=== PATIENT | female | born 1985 | race American Indian/Alaskan Native ===

== ENCOUNTER 2018-12-20 22:39 | Inpatient (IN) | payer MEDICAID ==
--- NOTE | 2018-12-21 02:28 | Ultrasound Report ---
PROCEDURE: US OB BPP WO NON-STRESS TECHNIQUE: Transabdominal imaging was obtained for the biophysical profile. HISTORY: vaginal bleeding COMPARISONS: None FINDINGS: For breathing movements, a score of 2 out of 2 was obtained. For movements, a score of 2 out of 2 was obtained. For posture and tone, a score of 2 out of 2 was obtained. Qualitative amniotic fluid volume, a score of 2 out of 2 was obtained. The heart rate is 149 BPM. IMPRESSION: Biophysical profile score of 8 out of 8. The heart rate is 149 BPM.. This document is electronically signed by Cesar Hodges MD., Dec 21 2018 02:26:08 AM ET
--- NOTE | 2018-12-21 02:30 | Ultrasound Report ---
PROCEDURE: US OB LIMITED TECHNIQUE: A limited OB sonogram was obtained for evaluation of the placenta and DEBBIE. HISTORY: vaginal bleeding COMPARISONS: None FINDINGS: The placenta is anterior in position and is left lateral. The placental grade is grade 2. There is no evidence of abruption. The heart rate is 149 BPM. The fetus is in cephalic presentation. The A FI is 5.4 cm which is decreased. IMPRESSION: No evidence of placental abruption or previa. DEBBIE is 5.4 cm which is below normal compatible with oligohydramnios/premature rupture of membranes. This document is electronically signed by Cesar Hodges MD., Dec 21 2018 02:28:08 AM ET
[2018-12-21] MEDS ORDERED: AMPICILLIN/NS 2 GM/100 ML 2 GM/100 ML BAG IV ONE (02:37)
[2018-12-21] MEDS ORDERED: XYLOCAINE 2% INFILTRATI ONE ×2 (02:37→08:58)
[2018-12-21] MEDS ORDERED: STADOL IV PRN (02:37)
[2018-12-21] MEDS ORDERED: MINERAL OIL PO PRN ×2 (02:37→22:00)
[2018-12-21] MEDS ORDERED: ZOFRAN IV PRN (02:37)
[2018-12-21] MEDS ORDERED: BRETHINE SUB-Q PRN ×2 (02:37→08:58)
[2018-12-21] MEDS ORDERED: BRETHINE IVP PRN ×2 (02:37→08:58)
[2018-12-21] MEDS ORDERED: NARCAN 0.4 MG/1 ML IV PRN (02:37)
[2018-12-21] MEDS ORDERED: SUBLIMAZE IV PRN (02:37)
[2018-12-21 02:58] LABS: Hematocrit 30.6 % (30.3-42.9); Hemoglobin 9.7 gm/dl (10.1-14.3); Mean Corpuscular HGB Conc 32 % (30-34); Platelet Count 278 K/mm3 (140-440); Red Blood Count 4.39 M/mm3 (3.65-5.03); Red Cell Distribution Width 16.3 % (13.2-15.2)
[2018-12-21] MEDS ORDERED: LACTATED RINGERS 1,000 ML IV SCH (03:00)
[2018-12-21] MEDS ORDERED: PITOCin/NS 30 UNIT/500ML 30 UNITS/500 ML BAG IV SCH ×3 (03:00→09:00)
[2018-12-21] MEDS ORDERED: PITOCin/NS 20 UNIT/1000ML DRIP 20 UNITS/1,000 ML BAG IV SCH ×2 (03:00→09:00)
[2018-12-21 03:03] LABS: Mean Corpuscular Volume 70 fl (79-97)
[2018-12-21 05:10] LABS: Hepatitis C Virus Antibody Non-Reactive (NonReactive)
[2018-12-21] MEDS: AMPICILLIN/NS 1 GM/50 ML 1 GM/50 ML BAG IV SCH ×3 (08:50→18:59)
--- NOTE | 2018-12-21 08:51 | History and Physical Report ---
History of Present Illness Date of examination: 12/21/18 Date of admission: 12/20/18 04:12 Chief complaint: Vaginal bleeding History of present illness: Bleeding, less than a period, since last night. Oligohydramnios found on ultrasound last night. 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 Family/Genetic History: none Social history: no significant social history - Obstetrical History Expected Date of Delivery: 12/28/18 Actual Gestation: 39 Week(s) 0 Day(s) : 5 Para: 1 Hx # Term Pregnancies: 1 Spontaneous Abortions: 3 #1 Birthweight: 5 lb (VAVD) Method of Delivery: Vaginal Complications: other ( hemorrhage) Medications and Allergies Allergies Allergy/AdvReac Type Severity Reaction Status Date / Time No Known Allergies Allergy Verified 12/21/18 00:02 Home Medications Medication Instructions Recorded Confirmed Last Taken Type Acyclovir [Zovirax Tab] 400 mg PO Q8H 12/21/18 12/21/18 12/20/18 History Ferrous Sulfate [Iron 325 MG] 1 tab PO DAILY 12/21/18 12/21/18 12/20/18 History Active Meds: Active Medications Butorphanol Tartrate (Stadol) 2 mg IV Q2H PRN PRN Reason: Pain , Severe (7-10) Ephedrine Sulfate (Ephedrine Sulfate) 10 mg IV Q2M PRN PRN Reason: Hypotension Fentanyl (Sublimaze) 100 mcg IV Q2H PRN PRN Reason: Labor Pain Oxytocin/Sodium Chloride (Pitocin/Ns 20 Unit/1000ml Drip) 20 units in 1,000 mls @ 125 mls/hr IV DIRECT BING Oxytocin/Sodium Chloride (Pitocin/Ns 30 Unit/500ml) 30 units in 500 mls @ 4 mls/hr IV TITR BING; Protocol Last Titration: 12/21/18 08:30 Dose: 8 ml/hr, 8 mls/hr Documented by: Lactated Ringer's (Lactated Ringers) 1,000 mls @ 125 mls/hr IV DIRECT BING Last Admin: 12/21/18 04:42 Dose: 125 mls/hr Documented by: Ampicillin Sodium (Ampicillin/Ns 1 Gm/50 Ml) 1 gm in 50 mls @ 100 mls/hr IV Q4 HR BING; Protocol Mineral Oil (Mineral Oil) 30 ml PO QHS PRN PRN Reason: Constipation Naloxone HCl (Narcan 0.4 Mg/1 Ml) 0.1 mg IV Q2MIN PRN PRN Reason: Res Rate </= 8 or 02 SAT < 92% Ondansetron HCl (Zofran) 4 mg IV Q8H PRN PRN Reason: Nausea And Vomiting Terbutaline Sulfate (Brethine) 0.25 mg SUB-Q ONCE PRN PRN Reason: Hyperstimulation/Hypertonicity Terbutaline Sulfate (Brethine) 0.25 mg IVP ONCE PRN PRN Reason: Hyperstimulation/Hypertonicity Review of Systems All systems: negative - Vital Signs Vital signs: Vital Signs Pulse BP 90 128/74 12/20/18 22:53 12/20/18 22:53 Temp Pulse Resp BP Pulse Ox 98.5 F 81 18 108/70 99 12/21/18 04:17 12/21/18 08:41 12/21/18 04:17 12/21/18 08:25 12/21/18 08:41 - Physical Exam Breasts: Positive: deferred Cardiovascular: Regular rate, Normal S1, Normal S2 Lungs: Positive: Clear to auscultation, Normal air movement Abdomen: Positive: normal appearance, soft Genitourinary (Female): Positive: normal external genitalia, normal perenium Uterus: Positive: normal size, normal contour Extremities: Positive: normal - Obstetrical FHR: auscultation normal, category 1 Uterine Contraction Monitor Mode: External Cervical Dilatation: 1.5 (Mild dark bleeding present) Cervical Effacement Percentage: 50 station: -2 Uterine Contraction Pattern: Regular Uterine Tone Measurement Phase: Contraction Uterine Contraction Intensity: Moderate Results Result Diagrams: 12/21/18 02:40 Abnormal lab results 12/21/18 Range/Units 02:40 WBC 13.5 H (4.5-11.0) K/mm3 Hgb 9.7 L (10.1-14.3) gm/dl MCV 70 L (79-97) fl MCH 22 L (28-32) pg RDW 16.3 H (13.2-15.2) % All other labs normal. Assessment and Plan 1. Oligohydramnios 2. Bleeding at term 3. Early labor Plan: Continue Pitocin augmentation as tolerated. If no cervical change in 2 hours, consider Cytotec. Continue monitoring - Patient Problems (1) Oligohydramnios Current Visit: Yes Status: Acute Qualifiers: Fetus number: single or unspecified fetus Trimester: third trimester Qualified Code(s): O41.03X0 - Oligohydramnios, third trimester, not applicable or unspecified (2) Term Current Visit: Yes Status: Acute
[2018-12-21 09:40] LABS: Hematocrit 29.2 % (30.3-42.9); Hemoglobin 9.3 gm/dl (10.1-14.3); Mean Corpuscular HGB Conc 32 % (30-34); Platelet Count 272 K/mm3 (140-440); Red Blood Count 4.19 M/mm3 (3.65-5.03); Red Cell Distribution Width 16.5 % (13.2-15.2)
[2018-12-21 09:58] LABS: Mean Corpuscular Volume 70 fl (79-97)
--- NOTE | 2018-12-21 13:15 | Progress Note ---
Assessment and Plan A/P IUP 39 weeks oligo IOL for oligo s/p cervidil on pitocin prepare for epidural Subjective - Subjective Date of service: 12/21/18 Principal diagnosis: oligo Patient reports: movement normal, contractions, no new complaints, no loss of fluid, no vaginal bleeding Objective - Vital Signs Vital Signs: Vital Signs - 12hr 12/21/18 12/21/18 12/21/18 02:50 02:55 03:00 Temperature Pulse Rate 78 91 H 88 Respiratory Rate Blood Pressure Blood Pressure [Right] O2 Sat by Pulse 99 97 95 Oximetry 12/21/18 12/21/18 12/21/18 03:05 03:10 03:15 Temperature Pulse Rate 93 H 77 79 Respiratory Rate Blood Pressure Blood Pressure [Right] O2 Sat by Pulse 96 96 96 Oximetry 12/21/18 12/21/18 12/21/18 04:06 04:11 04:16 Temperature Pulse Rate 97 H 116 H 95 H Respiratory Rate Blood Pressure Blood Pressure [Right] O2 Sat by Pulse 98 98 97 Oximetry 12/21/18 12/21/18 12/21/18 04:17 04:20 04:21 Temperature 98.5 F Pulse Rate 102 H 77 86 Respiratory 18 Rate Blood Pressure 108/57 Blood Pressure 108/57 [Right] O2 Sat by Pulse 97 97 Oximetry 12/21/18 12/21/18 12/21/18 04:26 04:31 04:36 Temperature Pulse Rate 84 78 99 H Respiratory Rate Blood Pressure Blood Pressure [Right] O2 Sat by Pulse 98 96 98 Oximetry 12/21/18 12/21/18 12/21/18 04:41 04:46 04:51 Temperature Pulse Rate 90 81 98 H Respiratory Rate Blood Pressure Blood Pressure [Right] O2 Sat by Pulse 98 97 98 Oximetry 12/21/18 12/21/18 12/21/18 04:56 05:01 05:06 Temperature Pulse Rate 103 H 87 85 Respiratory Rate Blood Pressure Blood Pressure [Right] O2 Sat by Pulse 96 97 97 Oximetry 12/21/18 12/21/18 12/21/18 05:11 05:16 05:21 Temperature Pulse Rate 85 84 86 Respiratory Rate Blood Pressure Blood Pressure [Right] O2 Sat by Pulse 97 97 96 Oximetry 12/21/18 12/21/18 12/21/18 05:25 05:26 05:31 Temperature Pulse Rate 77 78 84 Respiratory Rate Blood Pressure 103/54 Blood Pressure [Right] O2 Sat by Pulse 96 97 Oximetry 12/21/18 12/21/18 12/21/18 05:36 05:41 05:45 Temperature Pulse Rate 92 H 87 74 Respiratory Rate Blood Pressure Blood Pressure [Right] O2 Sat by Pulse 98 97 94 Oximetry 12/21/18 12/21/18 12/21/18 05:46 05:51 05:52 Temperature Pulse Rate 90 76 79 Respiratory Rate Blood Pressure Blood Pressure [Right] O2 Sat by Pulse 96 97 93 Oximetry 12/21/18 12/21/18 12/21/18 05:55 05:56 06:01 Temperature Pulse Rate 106 H 77 71 Respiratory Rate Blood Pressure 99/60 Blood Pressure [Right] O2 Sat by Pulse 94 94 Oximetry 12/21/18 12/21/18 12/21/18 06:06 06:11 06:16 Temperature Pulse Rate 74 73 110 H Respiratory Rate Blood Pressure Blood Pressure [Right] O2 Sat by Pulse 95 94 95 Oximetry 12/21/18 12/21/18 12/21/18 06:18 06:21 06:23 Temperature Pulse Rate 72 91 H 73 Respiratory Rate Blood Pressure Blood Pressure [Right] O2 Sat by Pulse 94 95 94 Oximetry 12/21/18 12/21/18 12/21/18 06:25 06:26 06:29 Temperature Pulse Rate 73 107 H 78 Respiratory Rate Blood Pressure 98/54 Blood Pressure [Right] O2 Sat by Pulse 95 94 Oximetry 12/21/18 12/21/18 12/21/18 06:31 06:35 06:36 Temperature Pulse Rate 101 H 72 87 Respiratory Rate Blood Pressure Blood Pressure [Right] O2 Sat by Pulse 95 94 96 Oximetry 12/21/18 12/21/18 12/21/18 06:41 06:44 06:46 Temperature Pulse Rate 89 88 96 H Respiratory Rate Blood Pressure Blood Pressure [Right] O2 Sat by Pulse 95 94 96 Oximetry 12/21/18 12/21/18 12/21/18 06:51 06:56 07:01 Temperature Pulse Rate 85 91 H 79 Respiratory Rate Blood Pressure 99/56 Blood Pressure [Right] O2 Sat by Pulse 95 96 95 Oximetry 12/21/18 12/21/18 12/21/18 07:06 07:09 07:11 Temperature Pulse Rate 107 H 77 90 Respiratory Rate Blood Pressure Blood Pressure [Right] O2 Sat by Pulse 94 94 96 Oximetry 12/21/18 12/21/18 12/21/18 07:16 07:21 07:25 Temperature Pulse Rate 90 94 H 100 H Respiratory Rate Blood Pressure 108/64 Blood Pressure [Right] O2 Sat by Pulse 96 96 Oximetry 12/21/18 12/21/18 12/21/18 07:26 07:31 07:36 Temperature Pulse Rate 80 81 86 Respiratory Rate Blood Pressure Blood Pressure [Right] O2 Sat by Pulse 95 96 96 Oximetry 12/21/18 12/21/18 12/21/18 07:41 07:46 07:51 Temperature Pulse Rate 63 76 82 Respiratory Rate Blood Pressure Blood Pressure [Right] O2 Sat by Pulse 97 96 98 Oximetry 12/21/18 12/21/18 12/21/18 07:56 08:01 08:06 Temperature Pulse Rate 76 79 74 Respiratory Rate Blood Pressure 109/67 Blood Pressure [Right] O2 Sat by Pulse 99 99 99 Oximetry 12/21/18 12/21/18 12/21/18 08:11 08:16 08:21 Temperature Pulse Rate 78 76 93 H Respiratory Rate Blood Pressure Blood Pressure [Right] O2 Sat by Pulse 100 100 99 Oximetry 12/21/18 12/21/18 12/21/18 08:25 08:26 08:31 Temperature Pulse Rate 82 81 81 Respiratory Rate Blood Pressure 108/70 Blood Pressure [Right] O2 Sat by Pulse 99 98 Oximetry 12/21/18 12/21/18 12/21/18 08:36 08:41 08:46 Temperature Pulse Rate 89 81 87 Respiratory Rate Blood Pressure Blood Pressure [Right] O2 Sat by Pulse 98 99 98 Oximetry 12/21/18 12/21/18 12/21/18 08:59 09:06 09:11 Temperature Pulse Rate 73 84 84 Respiratory Rate Blood Pressure 99/52 Blood Pressure [Right] O2 Sat by Pulse 98 96 Oximetry 12/21/18 12/21/18 12/21/18 09:16 09:21 09:26 Temperature Pulse Rate 87 81 92 H Respiratory Rate Blood Pressure Blood Pressure [Right] O2 Sat by Pulse 97 96 98 Oximetry 12/21/18 12/21/18 12/21/18 09:31 09:32 09:36 Temperature Pulse Rate 77 84 75 Respiratory Rate Blood Pressure 104/59 Blood Pressure [Right] O2 Sat by Pulse 96 94 95 Oximetry 12/21/18 12/21/18 12/21/18 09:41 09:45 09:46 Temperature Pulse Rate 92 H 81 86 Respiratory Rate Blood Pressure Blood Pressure [Right] O2 Sat by Pulse 97 94 96 Oximetry 12/21/18 12/21/18 12/21/18 09:51 09:53 09:56 Temperature Pulse Rate 86 82 87 Respiratory Rate Blood Pressure 105/62 Blood Pressure [Right] O2 Sat by Pulse 95 94 95 Oximetry 12/21/18 12/21/18 12/21/18 09:58 10:01 10:05 Temperature Pulse Rate 75 76 90 Respiratory Rate Blood Pressure Blood Pressure [Right] O2 Sat by Pulse 94 94 94 Oximetry 12/21/18 12/21/18 12/21/18 10:06 10:11 10:13 Temperature Pulse Rate 76 81 86 Respiratory Rate Blood Pressure Blood Pressure [Right] O2 Sat by Pulse 95 95 94 Oximetry 12/21/18 12/21/18 12/21/18 10:16 10:21 10:25 Temperature Pulse Rate 88 89 83 Respiratory Rate Blood Pressure 113/69 Blood Pressure [Right] O2 Sat by Pulse 97 94 Oximetry 12/21/18 12/21/18 12/21/18 10:26 10:27 10:31 Temperature Pulse Rate 84 94 H 93 H Respiratory Rate Blood Pressure Blood Pressure [Right] O2 Sat by Pulse 95 94 96 Oximetry 12/21/18 12/21/18 12/21/18 10:33 10:36 10:39 Temperature Pulse Rate 79 86 74 Respiratory Rate Blood Pressure Blood Pressure [Right] O2 Sat by Pulse 94 98 94 Oximetry 12/21/18 12/21/18 12/21/18 10:41 10:46 10:47 Temperature Pulse Rate 85 69 72 Respiratory Rate Blood Pressure Blood Pressure [Right] O2 Sat by Pulse 95 95 94 Oximetry 12/21/18 12/21/18 12/21/18 10:51 10:53 10:56 Temperature Pulse Rate 82 73 80 Respiratory Rate Blood Pressure Blood Pressure [Right] O2 Sat by Pulse 95 94 97 Oximetry 12/21/18 12/21/18 12/21/18 11:00 11:01 11:06 Temperature Pulse Rate 75 71 78 Respiratory Rate Blood Pressure 109/55 Blood Pressure [Right] O2 Sat by Pulse 97 97 Oximetry 12/21/18 12/21/18 12/21/18 11:11 11:16 11:21 Temperature Pulse Rate 82 77 86 Respiratory Rate Blood Pressure Blood Pressure [Right] O2 Sat by Pulse 96 97 96 Oximetry 12/21/18 12/21/18 12/21/18 11:25 11:26 11:31 Temperature Pulse Rate 73 74 71 Respiratory Rate Blood Pressure 114/70 Blood Pressure [Right] O2 Sat by Pulse 96 96 Oximetry 12/21/18 12/21/18 12/21/18 11:36 11:41 11:46 Temperature Pulse Rate 81 76 80 Respiratory Rate Blood Pressure Blood Pressure [Right] O2 Sat by Pulse 96 97 97 Oximetry 12/21/18 12/21/18 12/21/18 11:51 11:56 12:00 Temperature 98.7 F Pulse Rate 72 77 Respiratory Rate Blood Pressure 106/70 Blood Pressure [Right] O2 Sat by Pulse 97 97 Oximetry 12/21/18 12/21/18 12/21/18 12:01 12:06 12:36 Temperature Pulse Rate 77 85 75 Respiratory Rate Blood Pressure Blood Pressure [Right] O2 Sat by Pulse 95 97 97 Oximetry 12/21/18 12/21/18 12/21/18 12:41 12:46 12:51 Temperature Pulse Rate 76 79 84 Respiratory Rate Blood Pressure Blood Pressure [Right] O2 Sat by Pulse 97 96 94 Oximetry 12/21/18 12/21/18 12/21/18 12:52 12:56 13:01 Temperature Pulse Rate 83 78 79 Respiratory Rate Blood Pressure Blood Pressure [Right] O2 Sat by Pulse 94 97 98 Oximetry 12/21/18 12/21/18 12/21/18 13:06 13:09 13:11 Temperature Pulse Rate 86 72 73 Respiratory Rate Blood Pressure 109/66 Blood Pressure [Right] O2 Sat by Pulse 99 97 Oximetry - Exam Breasts: normal Cardiovascular: Regular rate, Normal S1 Lungs: Clear to auscultation, Normal air movement Abdomen: Present: normal appearance, soft, normal bowel sounds. Absent: distention, tenderness, guarding Uterus: Present: normal, firm, fundal height below umbilicus. Absent: bogginess, tenderness Cervical Dilatation: 3 Cervical Effacement Percentage: 80 station: -3 Uterine Contraction Pattern: Regular Uterine Tone Measurement Phase: Contraction Uterine Contraction Intensity: Moderate - Labs Labs: Abnormal Labs 12/21/18 12/21/18 02:40 09:24 WBC 13.5 H 11.9 H Hgb 9.7 L 9.3 L Hct 29.2 L MCV 70 L 70 L MCH 22 L 22 L RDW 16.3 H 16.5 H Laboratory Results - last 24 hr 12/21/18 12/21/18 12/21/18 02:40 02:40 02:40 WBC 13.5 H RBC 4.39 Hgb 9.7 L Hct 30.6 MCV 70 L MCH 22 L MCHC 32 RDW 16.3 H Plt Count 278 RPR Nonreactive Hep Bs Antigen Hepatitis C Antibody HIV 1&2 Antibody Rapid HIV P24 Antigen Rubella IgG Antibody Blood Type AB POSITIVE Antibody Screen Negative 12/21/18 12/21/18 12/21/18 02:40 02:40 02:40 WBC RBC Hgb Hct MCV MCH MCHC RDW Plt Count RPR Hep Bs Antigen Non-reactive Hepatitis C Antibody Non-reactive HIV 1&2 Antibody Rapid Non react HIV P24 Antigen Non react Rubella IgG Antibody Immune Blood Type Antibody Screen 12/21/18 09:24 WBC 11.9 H RBC 4.19 Hgb 9.3 L Hct 29.2 L MCV 70 L MCH 22 L MCHC 32 RDW 16.5 H Plt Count 272 RPR Hep Bs Antigen Hepatitis C Antibody HIV 1&2 Antibody Rapid HIV P24 Antigen Rubella IgG Antibody Blood Type Antibody Screen
[2018-12-21] MEDS: LACTATED RINGERS 1,000 ML IV SCH ×3 (13:30→19:40)
[2018-12-21] MEDS ORDERED: fentaNYL-BUPIV 2 MCG/ML-0.125% 200 MCG/100 ML BAG EPIDURAL ONE (14:07)
[2018-12-21] MEDS ORDERED: NARCAN 2 MG/2 ML IV PRN (14:11)
--- NOTE | 2018-12-21 14:13 | Anesthesia Day of Surgery ---
Anesthesia Day of Surgery - Day of Surgery Patient Examined: Yes Patient H&P Reviewed: Yes Patient is NPO: Yes Beta Blockers: No Cardiac Clearance: No Pulmonary Clearance: No Corbin's Test: N/A
--- NOTE | 2018-12-21 14:13 | Anesthesia Consultation ---
Anesthesia Consult and Med Hx Date of service: 12/21/18 - Airway Anesthetic Teeth Evaluation: Good ROM Head & Neck: Adequate Mental/Hyoid Distance: Adequate Mallampati Class: Class III Intubation Access Assessment: Probably Good - Pulmonary Exam CTA: Yes - Cardiac Exam Cardiac Exam: RRR - Pre-Operative Health Status ASA Pre-Surgery Classification: ASA3 Proposed Anesthetic Plan: Epidural, Spinal - Pulmonary Hx Smoking: No Hx Asthma: No Hx Respiratory Symptoms: No SOB: No COPD: No Home Oxygen Therapy: No Hx Pneumonia: No Hx Sleep Apnea: No - Cardiovascular System Hx Hypertension: No Hx Coronary Artery Disease: No Hx Heart Attack/AMI: No Hx Angina: No Hx Percutaneous Transluminal Coronary Angioplasty (PTCA): No Hx Cardia Arrhythmia: No Hx Pacemaker: No Hx Internal Defibrillator: No Hx Valvular Heart Disease: No Hx Heart Murmur: No Hx Peripheral Vascular Disease: No - Central Nervous System Hx Neuromuscular Disorder: No Hx Seizures: No CVA: No Hx Back Pain: Yes Hx Psychiatric Problems: No - Gastrointestinal Hx Ulcer: No Hx Gastroesophageal Reflux Disease: Yes - Endocrine Hx Renal Disease: No Hx End Stage Renal Disease: No Hx Cirrhosis: No Hx Liver Disease: No Hx Insulin Dependent Diabetes: No Hx Non-Insulin Dependent Diabetes: No Hx Thyroid Disease: No Hx Hypothyroidism: No Hx Hyperthyroidism: No - Hematic Hx Anemia: Yes Hx Sickle Cell Disease: Yes (trait) - Other Systems Hx Alcohol Use: No Hx Substance Use: No Hx Cancer: No Hx Obesity: No
--- NOTE | 2018-12-21 14:14 | Post Anesthesia Evaluation ---
- Post Anesthesia Evaluation Patient Participated: Yes Airway Patent: Yes Stable Respiratory Function: Yes Nausea/Vomiting: No Temp > 96.8F: Yes Pain Manageable: Yes Adequeate Hydration: Yes Anesthesia Complications: No Block Receding Appropriately: Yes Patient on Ventilator: No
[2018-12-21] MEDS ORDERED: fentaNYL-BUPIV 2 MCG/ML-0.125% 200 MCG/100 ML BAG EPIDURAL SCH (15:00)
--- NOTE | 2018-12-21 21:10 | Progress Note ---
Assessment and Plan A/P IUP 39 weeks, term, vertex IOL for oligo s/p cervidil on pitocin s/p epidural AROM clear continue pitocin expect vaginal delivery Subjective - Subjective Date of service: 12/21/18 Principal diagnosis: oligo Patient reports: movement normal, contractions, no new complaints, no loss of fluid, no vaginal bleeding Objective - Vital Signs Vital Signs: Vital Signs - 12hr 12/21/18 12/21/18 12/21/18 09:11 09:16 09:21 Temperature Pulse Rate 84 87 81 Blood Pressure O2 Sat by Pulse 96 97 96 Oximetry 12/21/18 12/21/18 12/21/18 09:26 09:31 09:32 Temperature Pulse Rate 92 H 77 84 Blood Pressure O2 Sat by Pulse 98 96 94 Oximetry 12/21/18 12/21/18 12/21/18 09:36 09:41 09:45 Temperature Pulse Rate 75 92 H 81 Blood Pressure 104/59 O2 Sat by Pulse 95 97 94 Oximetry 12/21/18 12/21/18 12/21/18 09:46 09:51 09:53 Temperature Pulse Rate 86 86 82 Blood Pressure O2 Sat by Pulse 96 95 94 Oximetry 12/21/18 12/21/18 12/21/18 09:56 09:58 10:01 Temperature Pulse Rate 87 75 76 Blood Pressure 105/62 O2 Sat by Pulse 95 94 94 Oximetry 12/21/18 12/21/18 12/21/18 10:05 10:06 10:11 Temperature Pulse Rate 90 76 81 Blood Pressure O2 Sat by Pulse 94 95 95 Oximetry 12/21/18 12/21/18 12/21/18 10:13 10:16 10:21 Temperature Pulse Rate 86 88 89 Blood Pressure O2 Sat by Pulse 94 97 94 Oximetry 12/21/18 12/21/18 12/21/18 10:25 10:26 10:27 Temperature Pulse Rate 83 84 94 H Blood Pressure 113/69 O2 Sat by Pulse 95 94 Oximetry 12/21/18 12/21/18 12/21/18 10:31 10:33 10:36 Temperature Pulse Rate 93 H 79 86 Blood Pressure O2 Sat by Pulse 96 94 98 Oximetry 12/21/18 12/21/18 12/21/18 10:39 10:41 10:46 Temperature Pulse Rate 74 85 69 Blood Pressure O2 Sat by Pulse 94 95 95 Oximetry 12/21/18 12/21/18 12/21/18 10:47 10:51 10:53 Temperature Pulse Rate 72 82 73 Blood Pressure O2 Sat by Pulse 94 95 94 Oximetry 12/21/18 12/21/18 12/21/18 10:56 11:00 11:01 Temperature Pulse Rate 80 75 71 Blood Pressure 109/55 O2 Sat by Pulse 97 97 Oximetry 12/21/18 12/21/18 12/21/18 11:06 11:11 11:16 Temperature Pulse Rate 78 82 77 Blood Pressure O2 Sat by Pulse 97 96 97 Oximetry 12/21/18 12/21/18 12/21/18 11:21 11:25 11:26 Temperature Pulse Rate 86 73 74 Blood Pressure 114/70 O2 Sat by Pulse 96 96 Oximetry 12/21/18 12/21/18 12/21/18 11:31 11:36 11:41 Temperature Pulse Rate 71 81 76 Blood Pressure O2 Sat by Pulse 96 96 97 Oximetry 12/21/18 12/21/18 12/21/18 11:46 11:51 11:56 Temperature Pulse Rate 80 72 77 Blood Pressure 106/70 O2 Sat by Pulse 97 97 97 Oximetry 12/21/18 12/21/18 12/21/18 12:00 12:01 12:06 Temperature 98.7 F Pulse Rate 77 85 Blood Pressure O2 Sat by Pulse 95 97 Oximetry 12/21/18 12/21/18 12/21/18 12:36 12:41 12:46 Temperature Pulse Rate 75 76 79 Blood Pressure O2 Sat by Pulse 97 97 96 Oximetry 12/21/18 12/21/18 12/21/18 12:51 12:52 12:56 Temperature Pulse Rate 84 83 78 Blood Pressure O2 Sat by Pulse 94 94 97 Oximetry 12/21/18 12/21/18 12/21/18 13:01 13:06 13:09 Temperature Pulse Rate 79 86 72 Blood Pressure 109/66 O2 Sat by Pulse 98 99 Oximetry 12/21/18 12/21/18 12/21/18 13:11 13:16 13:20 Temperature Pulse Rate 73 75 79 Blood Pressure O2 Sat by Pulse 97 97 94 Oximetry 12/21/18 12/21/18 12/21/18 13:21 13:26 13:31 Temperature Pulse Rate 73 68 76 Blood Pressure 113/72 O2 Sat by Pulse 97 94 99 Oximetry 12/21/18 12/21/18 12/21/18 13:36 13:41 13:46 Temperature Pulse Rate 77 69 72 Blood Pressure O2 Sat by Pulse 96 96 99 Oximetry 12/21/18 12/21/18 12/21/18 13:51 13:56 13:57 Temperature Pulse Rate 74 74 71 Blood Pressure 115/73 O2 Sat by Pulse 97 96 Oximetry 12/21/18 12/21/18 12/21/18 14:01 14:06 14:13 Temperature Pulse Rate 85 78 70 Blood Pressure O2 Sat by Pulse 97 97 100 Oximetry 12/21/18 12/21/18 12/21/18 14:18 14:23 14:25 Temperature Pulse Rate 72 64 69 Blood Pressure 107/67 O2 Sat by Pulse 100 100 Oximetry 12/21/18 12/21/18 12/21/18 14:28 14:29 14:33 Temperature Pulse Rate 81 75 87 Blood Pressure 109/65 O2 Sat by Pulse 100 99 Oximetry 12/21/18 12/21/18 12/21/18 14:34 14:38 14:39 Temperature Pulse Rate 71 70 71 Blood Pressure 100/57 97/57 O2 Sat by Pulse 99 Oximetry 12/21/18 12/21/18 12/21/18 14:43 14:46 14:48 Temperature Pulse Rate 74 87 70 Blood Pressure 109/64 O2 Sat by Pulse 99 100 Oximetry 12/21/18 12/21/18 12/21/18 14:49 14:50 14:53 Temperature Pulse Rate 65 65 74 Blood Pressure 104/57 104/58 O2 Sat by Pulse 100 Oximetry 12/21/18 12/21/18 12/21/18 14:55 14:58 14:59 Temperature Pulse Rate 68 65 66 Blood Pressure 111/62 108/61 O2 Sat by Pulse 99 Oximetry 12/21/18 12/21/18 12/21/18 15:03 15:04 15:08 Temperature Pulse Rate 68 65 87 Blood Pressure 105/60 O2 Sat by Pulse 99 100 Oximetry 12/21/18 12/21/18 12/21/18 15:13 15:18 15:21 Temperature Pulse Rate 73 64 66 Blood Pressure 105/60 O2 Sat by Pulse 100 100 Oximetry 12/21/18 12/21/18 12/21/18 15:23 15:28 15:33 Temperature Pulse Rate 65 76 69 Blood Pressure O2 Sat by Pulse 100 97 99 Oximetry 12/21/18 12/21/18 12/21/18 15:35 15:38 15:43 Temperature Pulse Rate 72 76 72 Blood Pressure 100/57 O2 Sat by Pulse 99 98 Oximetry 12/21/18 12/21/18 12/21/18 15:48 15:50 15:53 Temperature Pulse Rate 67 70 81 Blood Pressure 102/63 O2 Sat by Pulse 98 99 Oximetry 12/21/18 12/21/18 12/21/18 15:58 16:00 16:03 Temperature 98.4 F Pulse Rate 79 75 Blood Pressure O2 Sat by Pulse 97 98 Oximetry 12/21/18 12/21/18 12/21/18 16:07 16:08 16:13 Temperature Pulse Rate 82 92 H 96 H Blood Pressure 125/78 O2 Sat by Pulse 94 99 Oximetry 12/21/18 12/21/18 12/21/18 16:18 16:21 16:23 Temperature Pulse Rate 83 84 68 Blood Pressure 110/73 O2 Sat by Pulse 99 99 Oximetry 12/21/18 12/21/18 12/21/18 16:28 16:33 16:36 Temperature Pulse Rate 67 74 59 L Blood Pressure 101/56 O2 Sat by Pulse 99 98 Oximetry 12/21/18 12/21/18 12/21/18 16:38 16:43 16:48 Temperature Pulse Rate 69 77 74 Blood Pressure O2 Sat by Pulse 97 97 98 Oximetry 12/21/18 12/21/18 12/21/18 16:52 16:53 16:58 Temperature Pulse Rate 73 79 64 Blood Pressure 113/70 O2 Sat by Pulse 99 99 Oximetry 12/21/18 12/21/18 12/21/18 17:03 17:06 17:08 Temperature Pulse Rate 72 70 90 Blood Pressure 102/58 O2 Sat by Pulse 97 97 Oximetry 12/21/18 12/21/18 12/21/18 17:09 17:10 17:13 Temperature Pulse Rate 84 83 70 Blood Pressure 106/63 O2 Sat by Pulse 93 97 Oximetry 12/21/18 12/21/18 12/21/18 17:18 17:22 17:23 Temperature Pulse Rate 74 75 91 H Blood Pressure 107/63 O2 Sat by Pulse 97 97 Oximetry 12/21/18 12/21/18 12/21/18 17:25 17:28 17:33 Temperature Pulse Rate 120 H 105 H 67 Blood Pressure O2 Sat by Pulse 94 97 97 Oximetry 12/21/18 12/21/18 12/21/18 17:35 17:38 17:43 Temperature Pulse Rate 70 58 L 73 Blood Pressure 111/69 O2 Sat by Pulse 97 97 Oximetry 12/21/18 12/21/18 12/21/18 17:48 17:50 17:53 Temperature Pulse Rate 61 68 65 Blood Pressure 106/68 O2 Sat by Pulse 97 98 Oximetry 12/21/18 12/21/18 12/21/18 17:58 18:03 18:06 Temperature Pulse Rate 63 66 80 Blood Pressure 111/66 O2 Sat by Pulse 97 98 Oximetry 12/21/18 12/21/18 12/21/18 18:08 18:13 18:18 Temperature Pulse Rate 68 59 L 61 Blood Pressure O2 Sat by Pulse 98 99 99 Oximetry 12/21/18 12/21/18 12/21/18 18:20 18:23 18:28 Temperature Pulse Rate 55 L 66 62 Blood Pressure 103/55 O2 Sat by Pulse 98 96 Oximetry 12/21/18 12/21/18 12/21/18 18:33 18:35 18:38 Temperature Pulse Rate 59 L 70 72 Blood Pressure 103/59 O2 Sat by Pulse 96 95 Oximetry 12/21/18 12/21/18 12/21/18 18:40 18:43 18:48 Temperature Pulse Rate 95 H 75 74 Blood Pressure O2 Sat by Pulse 91 99 99 Oximetry 12/21/18 12/21/18 12/21/18 18:51 18:52 18:53 Temperature Pulse Rate 69 87 60 Blood Pressure 77/50 75/47 O2 Sat by Pulse 99 Oximetry 12/21/18 12/21/18 12/21/18 18:57 18:58 19:00 Temperature Pulse Rate 65 56 L 60 Blood Pressure 82/53 87/50 O2 Sat by Pulse 99 Oximetry 12/21/18 12/21/18 12/21/18 19:03 19:08 19:13 Temperature Pulse Rate 91 H 52 L 90 Blood Pressure 98/50 94/51 O2 Sat by Pulse 99 98 98 Oximetry 12/21/18 12/21/18 12/21/18 19:18 19:19 19:23 Temperature Pulse Rate 70 71 68 Blood Pressure 92/55 83/50 O2 Sat by Pulse 97 96 Oximetry 12/21/18 12/21/18 12/21/18 19:28 19:29 19:33 Temperature Pulse Rate 70 69 68 Blood Pressure 96/51 O2 Sat by Pulse 97 96 Oximetry 12/21/18 12/21/18 12/21/18 19:34 19:37 19:38 Temperature Pulse Rate 66 71 67 Blood Pressure 100/55 100/59 O2 Sat by Pulse 94 96 Oximetry 12/21/18 12/21/18 12/21/18 19:43 19:48 19:53 Temperature Pulse Rate 68 64 65 Blood Pressure 97/52 O2 Sat by Pulse 95 95 96 Oximetry 12/21/18 12/21/18 12/21/18 19:56 19:58 20:03 Temperature Pulse Rate 72 69 61 Blood Pressure O2 Sat by Pulse 92 94 94 Oximetry 12/21/18 12/21/18 12/21/18 20:08 20:10 20:13 Temperature Pulse Rate 74 63 69 Blood Pressure 95/52 O2 Sat by Pulse 94 95 Oximetry 12/21/18 12/21/18 12/21/18 20:16 20:18 20:23 Temperature Pulse Rate 70 71 64 Blood Pressure 93/54 O2 Sat by Pulse 93 95 95 Oximetry 12/21/18 12/21/18 12/21/18 20:28 20:33 20:38 Temperature Pulse Rate 67 63 64 Blood Pressure 95/54 O2 Sat by Pulse 95 96 95 Oximetry 12/21/18 12/21/18 12/21/18 20:43 20:48 20:53 Temperature Pulse Rate 65 69 69 Blood Pressure O2 Sat by Pulse 94 95 96 Oximetry 12/21/18 12/21/18 20:58 21:03 Temperature Pulse Rate 72 85 Blood Pressure O2 Sat by Pulse 95 97 Oximetry - Exam Breasts: normal Cardiovascular: Regular rate, Normal S1 Lungs: Clear to auscultation, Normal air movement Abdomen: Present: normal appearance, soft, normal bowel sounds. Absent: distention, tenderness, guarding Uterus: Present: normal, firm, fundal height below umbilicus. Absent: bogginess, tenderness FHR: category 1 Cervical Dilatation: 4 Cervical Effacement Percentage: 80 station: -2 Uterine Contraction Pattern: Regular Uterine Tone Measurement Phase: Contraction Uterine Contraction Intensity: Moderate Extremities: normal Deep Tendon Reflex Grade: Normal +2 - Labs Labs: Abnormal Labs 12/21/18 12/21/18 02:40 09:24 WBC 13.5 H 11.9 H Hgb 9.7 L 9.3 L Hct 29.2 L MCV 70 L 70 L MCH 22 L 22 L RDW 16.3 H 16.5 H Laboratory Results - last 24 hr 12/21/18 12/21/18 12/21/18 02:40 02:40 02:40 WBC 13.5 H RBC 4.39 Hgb 9.7 L Hct 30.6 MCV 70 L MCH 22 L MCHC 32 RDW 16.3 H Plt Count 278 RPR Nonreactive Hep Bs Antigen Hepatitis C Antibody HIV 1&2 Antibody Rapid HIV P24 Antigen Rubella IgG Antibody Blood Type AB POSITIVE Antibody Screen Negative 12/21/18 12/21/18 12/21/18 02:40 02:40 02:40 WBC RBC Hgb Hct MCV MCH MCHC RDW Plt Count RPR Hep Bs Antigen Non-reactive Hepatitis C Antibody Non-reactive HIV 1&2 Antibody Rapid Non react HIV P24 Antigen Non react Rubella IgG Antibody Immune Blood Type Antibody Screen 12/21/18 09:24 WBC 11.9 H RBC 4.19 Hgb 9.3 L Hct 29.2 L MCV 70 L MCH 22 L MCHC 32 RDW 16.5 H Plt Count 272 RPR Hep Bs Antigen Hepatitis C Antibody HIV 1&2 Antibody Rapid HIV P24 Antigen Rubella IgG Antibody Blood Type Antibody Screen
[2018-12-21] MEDS ORDERED: METHERGINE IM ONE ×2 (22:05→22:11)
[2018-12-21] MEDS ORDERED: CYTOTEC ONE (22:13)
[2018-12-21] MEDS ORDERED: CYTOTEC PR ONE (22:14)
[2018-12-21 22:59] LABS: Basophils # (Auto) 0.1 K/mm3 (0.0-0.1); Basophils % (Auto) 0.4 % (0.0-1.8); Eosinophils % (Auto) 0.2 % (0.0-4.3); Hematocrit 28.9 % (30.3-42.9); Hemoglobin 9.2 gm/dl (10.1-14.3); Lymphocytes # (Auto) 1.6 K/mm3 (1.2-5.4); Lymphocytes % (Auto) 11.8 % (13.4-35.0); Mean Corpuscular HGB Conc 32 % (30-34); Mean Corpuscular Volume 71 fl (79-97); Monocytes # (Auto) 0.7 K/mm3 (0.0-0.8); Platelet Count 249 K/mm3 (140-440); Red Cell Distribution Width 16.5 % (13.2-15.2)
--- NOTE | 2018-12-21 23:38 | Procedure Note ---
OB Delivery Note - Delivery Date of Delivery: 12/21/18 Surgeon: AFSANEH MACDONALD Estimated blood loss: 1000cc - Vaginal Delivery presentation: vertex Delivery position: OA Delivery induction: AROM Delivery monitor: external FHT, external uterine Route of delivery: Delivery placenta: spontaneous Delivery cord: 3 umbilical vessels Episiotomy: none Delivery laceration: none Anesthesia: none Delivery comments: Patient was noted to be c/c +1 and commenced to pushing a viable male infant at 2200. The nasopharynx and oropharynx suctioned. The cord was clamped and cut and placed on mom chest. The Apgars noted at 9 and 9. Weight ofmale infant 5 pounds 14 oz. Survey of perineum did not revela any lacerations. The placenta delivered intact with three vessel cord. Bleeding was noted and had 1000cc. Immediate uterine massage, hand in the uterus to remove clots cytotec 1000 ug MD and Methergine. Bleeding resolved- uterus firm. Stat cbc sent which was essentially same as admission for hgb at 9. I will repeat in several hours and place 2 U on hold for possible transfusion. Patient tolerated procedure well.
[2018-12-22 00:48] LABS: Hemoglobin 8.5 gm/dl (10.1-14.3); Mean Corpuscular HGB Conc 32 % (30-34); Platelet Count 244 K/mm3 (140-440); Red Blood Count 3.86 M/mm3 (3.65-5.03); Red Cell Distribution Width 16.4 % (13.2-15.2)
[2018-12-22 00:52] LABS: Mean Corpuscular Volume 70 fl (79-97)
[2018-12-22] MEDS ORDERED: BENADRYL PO PRN (02:35)
[2018-12-22] MEDS ORDERED: DULCOLAX PR PRN (02:35)
[2018-12-22] MEDS ORDERED: LANSINOH TP PRN (02:35)
[2018-12-22] MEDS ORDERED: TUCKS PAD TP PRN (02:35)
[2018-12-22] MEDS ORDERED: TYLENOL PO PRN (02:35)
[2018-12-22] MEDS: IBUPROFEN PO SCH ×3 (02:57→23:09)
[2018-12-22] MEDS ORDERED: SODIUM CHLORIDE FLUSH SYRINGE 10 ML IV PRN (03:00)
[2018-12-22 08:02] LABS: Band Neutrophils # (Manual) 2.7 K/mm3; Basophils % (Manual) 0 % (0.0-1.8); Eosinophils % (Manual) 0 % (0.0-4.3); Total Cells Counted 100
[2018-12-22 08:03] LABS: Anisocytosis 1+
--- NOTE | 2018-12-22 10:34 | Progress Note ---
Assessment and Plan A/P PPD1 s/p PP hemorrhage hgb 9-8. on amp for uterine hand to remove clots during Pp hemorrhage close monitor of vs Subjective - Subjective Date of service: 12/22/18 Principal diagnosis: oligo Patient reports: appetite normal, voiding normally, pain well controlled, ambulating normally : doing well Objective - Vital Signs Latest vital signs: Vital Signs Temp Pulse Resp BP BP Pulse Ox 12/22/18 07:38 98.4 F 62 20 99/60 96 12/22/18 03:50 98.6 F 75 18 103/52 97 12/22/18 02:57 20 12/22/18 02:39 98.7 F 81 18 103/63 99 12/22/18 02:02 75 101/56 12/22/18 01:48 72 107/64 12/22/18 01:32 96 H 103/64 12/22/18 01:17 74 104/60 12/22/18 01:02 81 103/59 12/22/18 00:48 85 106/60 12/22/18 00:44 77 97/53 12/22/18 00:22 74 98/49 12/21/18 23:48 81 101/58 12/21/18 23:33 85 116/55 12/21/18 23:18 87 121/62 12/21/18 23:12 85 90 12/21/18 23:07 85 90 12/21/18 23:01 83 96 12/21/18 23:00 88 120/58 12/21/18 22:56 95 H 99 12/21/18 22:55 94 H 133/69 12/21/18 22:51 127 H 87 12/21/18 22:46 107 H 100 12/21/18 22:44 126 H 142/64 12/21/18 22:41 137 H 100 12/21/18 22:40 116 H 90 12/21/18 22:36 107 H 100 12/21/18 22:35 94 H 102/63 12/21/18 22:33 131 H 115/68 12/21/18 22:30 116 H 87/58 12/21/18 22:25 85 95/55 12/21/18 22:17 88 99/57 12/21/18 22:03 96 H 97 12/21/18 22:00 108 H 86 0524 21:58 92 H 98 05 21:53 84 98 0524 21:48 85 98 05 21:43 77 98 05/ 21:42 83 112/57 05/19 21:38 82 98 05 21:33 74 98 05 21:28 76 97 05 21:23 77 98 05 21:18 80 98 05 21:13 92 H 98 05 21:12 86 94/51 05 21:08 78 97 05 21:03 85 97 05 20:58 72 95 05 20:53 69 96 05 20:48 69 95 0519 20:43 65 94 05 20:38 64 95/54 95 05 20:33 63 96 05 20:28 67 95 0519 20:23 64 93/54 95 05/19 20:18 71 95 05/19 20:16 70 93 0519 20:13 69 95 05/19 20:10 63 95/52 05 20:08 74 94 05 20:03 61 94 0519 19:58 69 94 0519 19:56 72 92 05 19:53 65 97/52 96 05 19:48 64 95 05 19:43 68 95 05 19:38 67 100/59 96 0519 19:37 71 94 0524/19 19:34 66 100/55 0524/19 19:33 68 96 05/24/19 19:29 69 96/51 0524/19 19:28 70 97 0519 19:23 68 83/50 96 05 19:19 71 92/55 05/19 19:18 70 97 05 19:13 90 94/51 98 0524 19:08 52 L 98/50 98 05 19:03 91 H 99 05 19:00 60 87/50 05/24/19 18:58 56 L 99 12/21/18 18:57 65 82/53 05 18:53 60 99 05 18:52 87 75/47 12/21/18 18:51 69 77/50 05 18:48 74 99 12/21/18 18:43 75 99 12/21/18 18:40 95 H 91 12/21/18 18:38 72 95 12/21/18 18:35 70 103/59 12/21/18 18:33 59 L 96 12/21/18 18:28 62 96 12/21/18 18:23 66 98 12/21/18 18:20 55 L 103/55 12/21/18 18:18 61 99 12/21/18 18:13 59 L 99 12/21/18 18:08 68 98 12/21/18 18:06 80 111/66 12/21/18 18:03 66 98 12/21/18 17:58 63 97 12/21/18 17:53 65 98 12/21/18 17:50 68 106/68 12/21/18 17:48 61 97 12/21/18 17:43 73 97 12/21/18 17:38 58 L 97 12/21/18 17:35 70 111/69 12/21/18 17:33 67 97 12/21/18 17:28 105 H 97 12/21/18 17:25 120 H 94 12/21/18 17:23 91 H 97 12/21/18 17:22 75 107/63 12/21/18 17:18 74 97 12/21/18 17:13 70 97 12/21/18 17:10 83 106/63 12/21/18 17:09 84 93 12/21/18 17:08 90 97 12/21/18 17:06 70 102/58 12/21/18 17:03 72 97 12/21/18 16:58 64 99 12/21/18 16:53 79 99 05 16:52 73 113/70 12/21/18 16:48 74 98 12/21/18 16:43 77 97 12/21/18 16:38 69 97 12/21/18 16:36 59 L 101/56 12/21/18 16:33 74 98 12/21/18 16:28 67 99 05 16:23 68 99 05 16:21 84 110/73 05 16:18 83 99 12/21/18 16:13 96 H 99 12/21/18 16:08 92 H 94 12/21/18 16:07 82 125/78 05 16:03 75 98 12/21/18 16:00 98.4 F 12/21/18 15:58 79 97 05 15:53 81 99 05 15:50 70 102/63 05 15:48 67 98 12/21/18 15:43 72 98 05 15:38 76 99 05 15:35 72 100/57 05 15:33 69 99 05 15:28 76 97 12/21/18 15:23 65 100 05 15:21 66 105/60 05 15:18 64 100 05 15:13 73 100 05 15:08 87 100 05 15:04 65 105/60 05 15:03 68 99 05 14:59 66 108/61 05 14:58 65 99 05 14:55 68 111/62 05 14:53 74 100 05 14:50 65 104/58 05 14:49 65 104/57 05 14:48 70 100 05 14:46 87 109/64 05 14:43 74 99 05 14:39 71 97/57 05 14:38 70 99 05 14:34 71 100/57 05 14:33 87 99 05 14:29 75 109/65 05 14:28 81 100 05 14:25 69 107/67 05 14:23 64 100 05 14:18 72 100 05 14:13 70 100 05 14:06 78 97 05 14:01 85 97 05 13:57 71 115/73 05 13:56 74 96 05 13:51 74 97 05 13:46 72 99 05 13:41 69 96 05 13:36 77 96 05 13:31 76 99 05 13:26 68 113/72 94 05 13:21 73 97 05 13:20 79 94 05 13:16 75 97 05 13:11 73 97 05 13:09 72 109/66 05 13:06 86 99 05 13:01 79 98 05 12:56 78 97 05 12:52 83 94 05 12:51 84 94 12/21/18 12:46 79 96 12/21/18 12:41 76 97 05 12:36 75 97 05 12:06 85 97 05 12:01 77 95 05 12:00 98.7 F 12/21/18 11:56 77 106/70 97 05 11:51 72 97 05 11:46 80 97 05 11:41 76 97 12/21/18 11:36 81 96 05 11:31 71 96 05 11:26 74 96 12/21/18 11:25 73 114/70 05 11:21 86 96 12/21/18 11:16 77 97 12/21/18 11:11 82 96 05 11:06 78 97 05 11:01 71 97 05 11:00 75 109/55 05 10:56 80 97 05 10:53 73 94 05 10:51 82 95 05 10:47 72 94 05 10:46 69 95 05 10:41 85 95 12/21/18 10:39 74 94 05 10:36 86 98 05 10:33 79 94 Intake and Output 12/21/18 12/22/18 12/22/18 23:59 07:59 15:59 Intake Total 602.083 120 Output Total 420 800 Balance 182.083 -680 Intake: IV 602.083 Lactated Ringers 1,000 ml 602.083 @ 125 mls/hr IV DIRECT BING Rx#:[id number] Intake, Free Water 120 Output: Urine 320 800 Indwelling Catheter 320 Void 800 Emesis 100 Other: Total, Output Amount 320 800 Estimated Blood Loss 1,000 - Exam Breasts: Present: normal Cardiovascular: Present: Regular rate, Normal S1 Lungs: Present: Clear to auscultation, Normal air movement Abdomen: Present: normal appearance, soft, normal bowel sounds. Absent: distention, tenderness, guarding Uterus: Present: normal, firm, fundal height below umbilicus. Absent: bogginess, tenderness Extremities: Present: normal Deep Tendon Reflex Grade: Normal +2 Incision: Present: normal, dry - Labs Labs: Abnormal lab results 12/21/18 12/22/18 Range/Units 22:44 00:26 WBC 13.4 H 22.5 H (4.5-11.0) K/mm3 Hgb 9.2 L 8.5 L (10.1-14.3) gm/dl Hct 28.9 L 27.0 L (30.3-42.9) % MCV 71 L 70 L (79-97) fl MCH 23 L 22 L (28-32) pg RDW 16.5 H 16.4 H (13.2-15.2) % Lymph % (Auto) 11.8 L (13.4-35.0) % Seg Neutrophils % 82.6 H (40.0-70.0) % Seg Neuts % (Manual) 73.0 H (40.0-70.0) % Lymphocytes % (Manual) 12.0 L (13.4-35.0) % Seg Neutrophils # 11.0 H (1.8-7.7) K/mm3 Seg Neutrophils # Man 16.4 H (1.8-7.7) K/mm3
[2018-12-22 15:10] LABS: Hematocrit 24.4 % (30.3-42.9); Hemoglobin 7.7 gm/dl (10.1-14.3)
[2018-12-22] MEDS: AMPICILLIN/NS 2 GM/100 ML 2 GM/100 ML BAG IV SCH ×2 (18:10→23:08)
[2018-12-22] MEDS ORDERED: NACL 0.9% 500 ML 500 ML IV ONE (19:39)
[2018-12-22] MEDS: FEOSOL PO SCH (19:59)
[2018-12-23] MEDS: IBUPROFEN PO SCH ×3 (05:06→23:46)
[2018-12-23] MEDS: AMPICILLIN/NS 2 GM/100 ML 2 GM/100 ML BAG IV SCH ×4 (05:07→23:43)
[2018-12-23] MEDS ORDERED: BOOSTRIX IM ONE (06:00)
[2018-12-23 07:46] LABS: Basophils # (Auto) 0.1 K/mm3 (0.0-0.1); Basophils % (Auto) 0.6 % (0.0-1.8); Eosinophils # (Auto) 0.2 K/mm3 (0.0-0.4); Eosinophils % (Auto) 1.9 % (0.0-4.3); Hemoglobin 7.9 gm/dl (10.1-14.3); Lymphocytes # (Auto) 2.2 K/mm3 (1.2-5.4); Lymphocytes % (Auto) 18.4 % (13.4-35.0); Mean Corpuscular HGB Conc 33 % (30-34); Monocytes # (Auto) 0.8 K/mm3 (0.0-0.8); Monocytes % (Auto) 6.4 % (0.0-7.3); Platelet Count 244 K/mm3 (140-440); Red Blood Count 3.48 M/mm3 (3.65-5.03); Red Cell Distribution Width 16.6 % (13.2-15.2)
[2018-12-23 08:05] LABS: Mean Corpuscular Volume 69 fl (79-97)
[2018-12-23] MEDS: FEOSOL PO SCH ×3 (08:57→20:11)
--- NOTE | 2018-12-23 09:03 | Progress Note ---
Assessment and Plan A/P PPD2 s/p PP hemorrhage hgb 9-8. repeat CBC consider d/c home Subjective - Subjective Date of service: 12/23/18 Principal diagnosis: oligo Patient reports: appetite normal, voiding normally, pain well controlled, flatus, ambulating normally [place]: doing well Objective - Vital Signs Latest vital signs: Vital Signs Temp Pulse Resp BP Pulse Ox 12/23/18 07:24 98.6 F 59 L 18 102/52 99 12/22/18 15:42 98.1 F 69 20 99/58 98 12/22/18 11:32 98.0 F 62 20 103/58 98 Intake and Output 12/22/18 12/23/18 12/23/18 23:59 07:59 15:59 Intake Total 800 100 Balance 800 100 Intake: IV 100 100 POLYCILLIN/NS 2 GM/100 ML 100 100 2 gm In 100 ml @ 100 mls /hr IV Q6HR BING Rx#: [id number] Oral 200 Intake, Free Water 500 Other: Total, Intake Amount 200 # Voids Void 1 - Exam Breasts: Present: normal Cardiovascular: Present: Regular rate, Normal S1 Lungs: Present: Clear to auscultation, Normal air movement Abdomen: Present: normal appearance, soft, normal bowel sounds. Absent: distention, tenderness, guarding Vulva: both: normal Uterus: Present: normal, firm, fundal height below umbilicus. Absent: bogginess, tenderness Extremities: Present: normal Deep Tendon Reflex Grade: Normal +2 Incision: Present: normal - Labs Labs: Abnormal lab results 12/22/18 12/23/18 Range/Units 14:53 07:33 WBC 12.1 H (4.5-11.0) K/mm3 RBC 3.48 L (3.65-5.03) M/mm3 Hgb 7.7 L 7.9 L (10.1-14.3) gm/dl Hct 24.4 L 24.0 L (30.3-42.9) % MCV 69 L (79-97) fl MCH 23 L (28-32) pg RDW 16.6 H (13.2-15.2) % Seg Neutrophils % 72.7 H (40.0-70.0) % Seg Neutrophils # 8.8 H (1.8-7.7) K/mm3
--- NOTE | 2018-12-23 10:15 | Discharge Summary ---
Providers - Providers Date of Admission: 12/21/18 04:12 Date of discharge: 12/23/18 Attending physician: MICHAEL ESPINAL Primary care physician: MICHAEL ESPINAL Hospitalization Reason for admission: active labor Delivery: Episiotomy: none Laceration: none Incision: normal Other procedures: none Discharge diagnosis: IUP at term delivered baby: male Hospital course: unremarkable hospital course. Patient had and lost 1000 cc . PP hemorrhage. Needs f/u H/h . stable in hopsital no blood transfusion asymptomatic Condition at discharge: Good Disposition: DC-01 TO HOME OR SELFCARE Plan - Discharge Medications Prescriptions: Ibuprofen [Motrin] 600 mg PO Q8H PRN #30 tablet PRN Reason: Pain oxyCODONE /ACETAMINOPHEN [Percocet 5/325] 1 tab PO Q6HR PRN #30 tablet PRN Reason: Pain - Provider Discharge Summary Activity: routine, no sex for 6 weeks, no strenuous exercise Diet: routine Instructions: routine Additional instructions: [] Smoking cessation referral if applicable(refer to patient education folder for contact #) [] Refer to [facility]'s [facility] Booklet Call your doctor immediately for: * Fever > 100.5 * Heavy vaginal bleeding ( >1 pad per hour) * Severe persistent headache * Shortness of breath * Reddened, hot, painful area to leg or breast * Drainage or odor from incision. * Keep incision clean and dry at all times and follow doctor's instructions regarding bathing/showering - Follow up plan Follow up: MICHAEL ESPINAL MD [Primary Care Provider] - 14 Days
[2018-12-24] MEDS: IBUPROFEN PO SCH ×3 (05:33→12:17)
[2018-12-24] MEDS: AMPICILLIN/NS 2 GM/100 ML 2 GM/100 ML BAG IV SCH (05:35)
[2018-12-24] MEDS: FEOSOL PO SCH (10:30)
[2018-12-24 13:48] VITALS: BP 115/69
== END 2018-12-24 14:00 | disposition home or self-care (01) | DRG 774 ==
LOC: TRG 22:39 → LD 12-21 04:12 → OB 12-22 02:32
PROVIDERS: ADMIT Obstetrics & Gynecology; ATTEND Obstetrics & Gynecology
PROC: 10E0XZZ Delivery of Products of Conception, External Approach (ICD-10-PCS; principal; 2018-12-21)
PROC: 10907ZC Drainage of Amniotic Fluid, Therapeutic from Products of Conception, Via Natural or Artificial Opening (ICD-10-PCS; 2018-12-21)
PROC: 3E033VJ Introduction of Other Hormone into Peripheral Vein, Percutaneous Approach (ICD-10-PCS; 2018-12-21)
PROC: 3E0234Z Introduction of Serum, Toxoid and Vaccine into Muscle, Percutaneous Approach (ICD-10-PCS; 2018-12-21)
PROC: 3E0R3BZ Introduction of Anesthetic Agent into Spinal Canal, Percutaneous Approach (ICD-10-PCS; 2018-12-21)
DX: O41.03X0 Oligohydramnios, third trimester, not applicable or unspecified (principal); O72.1 Other immediate postpartum hemorrhage; K21.9 Gastro-esophageal reflux disease without esophagitis; O99.02 Anemia complicating childbirth; O99.62 Diseases of the digestive system complicating childbirth; D57.1 Sickle-cell disease without crisis; Z3A.39 39 weeks gestation of pregnancy; Z37.0 Single live birth; Z23 Encounter for immunization
CPT/HCPCS: 36415; 76815; 76819; 85007; 85014; 85018; 85025; 85027; 86592; 86706; 86762; 86803; 86850; 86900; 86901; 87806; 90471; 90715; G0378; J0290; J2210; J2405; J2590; J7040; J7120

== ENCOUNTER 2019-08-11 10:17 | Emergency (ER) | payer MEDICAID ==
[2019-08-11 10:38] VITALS: BP 121/83
[2019-08-11 11:15] LABS: Bilirubin,Urine NEG (Negative); Blood,Urine SM (Negative); Calcium Oxalate Crystals,Urine 2+; Color,Urine Yellow (Yellow); Mucus,Urine 2+ /HPF; Urobilinogen,Urine < 2.0 mg/dL (<2.0)
[2019-08-11 11:16] LABS: HCG Qualitative,Urine Negative (Negative)
--- NOTE | 2019-08-11 14:40 | Emergency Department Report ---
ED Female HPI - General Chief complaint: Urogenital-Female Stated complaint: DARK URINE Time Seen by Provider: 08/11/19 14:14 Source: patient Mode of arrival: Ambulatory Limitations: No Limitations - History of Present Illness Initial comments: This is a 34-year-old female nontoxic, well nourished in appearance, no acute signs of distress presents to the ED with c/o of dark yellow colored urine x2 days. Patient stated has been taking Flagyl and azithromycin. Patient denies any vaginal discharge, bleeding, ulcers or lesions. Patient denies any back pain. Patient denies any pelvic or abdominal pain. Patient denies any nausea, vomiting, chest pain, shortness of breathe, fever, chills, headache, back pain, numbness, tingling, stiff neck. Patient denies any urinary symptoms. Patient denies any allergies or PMH. MD Complaint: other (urinar coloar change) -: days(s) Severity scale (0 -10): 0 Improves with: none Worsens with: none Are you Now?: No Associated Symptoms: denies other symptoms. denies: vaginal discharge, vaginal bleeding, abdominal pain, nausea/vomiting, fever/chills, headaches, loss of appetite, dysuria, hematuria, rash, seizure, shortness of breath, syncope, weakness - Related Data Home Medications Medication Instructions Recorded Confirmed Last Taken Acyclovir [Zovirax Tab] 400 mg PO Q8H 12/21/18 12/21/18 12/20/18 Ferrous Sulfate [Iron 325 MG] 1 tab PO DAILY 12/21/18 12/21/18 12/20/18 Previous Rx's Medication Instructions Recorded Last Taken Type Ibuprofen [Motrin] 600 mg PO Q8H PRN #30 tablet 12/23/18 Unknown Rx oxyCODONE /ACETAMINOPHEN [Percocet 1 tab PO Q6HR PRN #30 tablet 12/23/18 Unknown Rx 5/325] Allergies Allergy/AdvReac Type Severity Reaction Status Date / Time No Known Allergies Allergy Verified 12/21/18 00:02 ED Review of Systems ROS: Stated complaint: DARK URINE Other details as noted in HPI Constitutional: denies: chills, fever Eyes: denies: eye pain, eye discharge, vision change ENT: denies: ear pain, throat pain Respiratory: denies: cough, shortness of breath, wheezing Cardiovascular: denies: chest pain, palpitations Endocrine: no symptoms reported Gastrointestinal: denies: abdominal pain, nausea, diarrhea Genitourinary: denies: urgency, dysuria, discharge Musculoskeletal: denies: back pain, joint swelling, arthralgia Skin: denies: rash, lesions Neurological: denies: headache, weakness, paresthesias Psychiatric: denies: anxiety, depression Hematological/Lymphatic: denies: easy bleeding, easy bruising ED Past Medical Hx - Past Medical History Previous Medical History?: No Hx Hypertension: No Hx Heart Attack/AMI: No Hx Congestive Heart Failure: No Hx Diabetes: No Hx Deep Vein Thrombosis: No Hx Liver Disease: No Hx Renal Disease: No Hx Sickle Cell Disease: Yes (trait) Hx Seizures: No Hx Asthma: No Hx COPD: No Hx HIV: No - Surgical History Past Surgical History?: No Hx Pacemaker: No Hx Internal Defibrillator: No - Social History Smoking Status: Never Smoker - Medications Home Medications: Home Medications Medication Instructions Recorded Confirmed Last Taken Type Acyclovir [Zovirax Tab] 400 mg PO Q8H 12/21/18 12/21/18 12/20/18 History Ferrous Sulfate [Iron 325 MG] 1 tab PO DAILY 12/21/18 12/21/18 12/20/18 History Ibuprofen [Motrin] 600 mg PO Q8H PRN #30 tablet 12/23/18 Unknown Rx oxyCODONE /ACETAMINOPHEN [Percocet 1 tab PO Q6HR PRN #30 tablet 12/23/18 Unknown Rx 5/325] ED Physical Exam - General Limitations: No Limitations General appearance: alert, in no apparent distress - Head Head exam: Present: atraumatic, normocephalic - Neck Neck exam: Present: normal inspection, full ROM. Absent: tenderness, meningismus, lymphadenopathy - GI/Abdominal GI/Abdominal exam: Present: soft, normal bowel sounds. Absent: distended, tenderness, guarding, rebound, rigid, diminished bowel sounds - Extremities Exam Extremities exam: Present: normal inspection, full ROM - Back Exam Back exam: Present: normal inspection, full ROM. Absent: tenderness, CVA tenderness (R), CVA tenderness (L), muscle spasm, paraspinal tenderness, vertebral tenderness, rash noted - Neurological Exam Neurological exam: Present: alert, oriented X3, normal gait - Psychiatric Psychiatric exam: Present: normal affect, normal mood - Skin Skin exam: Present: warm, dry, intact, normal color. Absent: rash ED Course Vital Signs 08/11/19 10:36 Temperature 98.7 F Pulse Rate 77 Respiratory 16 Rate Blood Pressure 121/83 [Right] O2 Sat by Pulse 96 Oximetry - Reevaluation(s) Reevaluation #1: 08/11/19 14:37 Patient is speaking in full sentences with no signs of distress noted. ED Medical Decision Making - Medical Decision Making This is a 34-year-old female that presents with dark colored urine. Patient is stable and was examined by me. Urine is unremarkable. Symptoms may be related to Flagyl that she is currently taking. Patient was instructed to Follow-up with a primary care doctor in 3-5 days or if symptoms worsen and continue return to emergency room as soon as possible. At time of discharge, the patient does not seem toxic or ill in appearance. No acute signs of distress noted. Patient agrees to discharge treatment plan of care. No further questions noted by the patient. Critical care attestation.: If time is entered above; I have spent that time in minutes in the direct care of this critically ill patient, excluding procedure time. ED Disposition Clinical Impression: Dark yellow-colored urine Disposition: [id number] TO HOME OR SELFCARE Is pt being admited?: No Does the pt Need Aspirin: No Condition: Stable Additional Instructions: Follow-up with a primary care doctor in 3-5 days or if symptoms worsen and continue return to emergency room as soon as possible. Referrals: PRIMARY MD SYLVESTER [Referring] - 3-5 Days MCKAY KURTZ MD [Staff Physician] - 3-5 Days [facility] [Outside] - 3-5 Days Time of Disposition: 14:41
== END 2019-08-11 16:08 | disposition home or self-care (01) ==
LOC: ED 10:17
DX: R82.998 Other abnormal findings in urine (principal); D57.3 Sickle-cell trait; Z79.899 Other long term (current) drug therapy
CPT/HCPCS: 81001; 81025; 99283